=== PATIENT | male | born 1935 | race Caucasian/White ===

== ENCOUNTER 2018-12-07 11:27 | Outpatient (CLI) | payer MEDICARE | END 2018-12-07 11:28 | disposition home or self-care (01) | LOC: LABBT 11:27 | PROVIDERS: ATTEND Surgery | DX: Z01.818 Encounter for other preprocedural examination (principal); K40.90 Unilateral inguinal hernia, without obstruction or gangrene, not specified as recurrent | CPT/HCPCS: 93005; 93010 ==

== ENCOUNTER 2018-12-13 07:05 | Day surgery (SDC) | payer MEDICARE ==
[2018-12-07 11:45] VITALS: BMI 20.4
[2018-12-13] MEDS ORDERED: Fentanyl 100 MCG/2 ML VIAL ONE (08:50)
[2018-12-13] MEDS ORDERED: Bupivacaine/Epinephrine 0.25% 30 ML VIAL ONE (08:53)
[2018-12-13] MEDS ORDERED: Bupivacaine PF 0.5% 30 ML VIAL ONE (09:32)
[2018-12-13] MEDS ORDERED: Tamsulosin HCl 0.4 MG CAP ONE (14:11)
--- NOTE | 2018-12-13 14:45 | OP ---
DATE OF PROCEDURE: 12/13/2018 PREOPERATIVE DIAGNOSIS: Right inguinal hernia. POSTOPERATIVE DIAGNOSIS: Right inguinal hernia. PROCEDURE PERFORMED: Right inguinal hernia repair with mesh, PHS extended. ANESTHESIA: General. ESTIMATED BLOOD LOSS: Minimal. COMPLICATIONS: None. SPECIMEN: None. FINDINGS: Right inguinal hernia. TECHNIQUE: The patient was taken to the operating room and laid supine on the operating room table. After general anesthetic was obtained, the bladder, abdomen, and groin were shaved, prepped, and draped in a sterile fashion. An oblique incision was made above the pubic tubercle in the right lower quadrant. Cautery was used to dissect down through Shadi's to expose external oblique. External oblique fibers up along the course of the external ring. The contents of inguinal canal were dissected from backside of the external oblique. The ilioinguinal nerve was found and segmentally high, removed to prevent postop pain. Cord structures were mobilized on the pubic tubercle using vessel loop. Dissection superior and medial in the cord showed to be indirect hernia sac. The sac was dissected away from surrounding structures and a high ligation was performed using silk suture. The preperitoneal space was entered through the internal ring. The PHS extended mesh was brought into the sterile field. The underlay was placed in the preperitoneal space. The overlay was laid in the floor of the inguinal canal. The overlay was sewn distally to the pubic tubercle, medially to the transversus arch, laterally to the shelving edge of inguinal ligament using permanent braided suture. The extra mesh was tacked back in the external oblique proximally. The wound was irrigated. Local anesthetic was applied. Tunneled catheter for postop pain started from above the incision, left on top of the mesh for postop pain control. The external oblique were closed using 3-0 Vicryl. Shadi was closed using 3-0 Vicryl. Skin was closed using running 4-0 Monocryl and Dermabond. The patient was sent to recovery room in stable condition. All instrument counts, needle counts, and lap counts were correct. Job ID: [id number]
[2018-12-13] MEDS ORDERED: PROPOFOL 200 MG/20 ML VIAL ONE (15:03)
[2018-12-13] MEDS ORDERED: Ketorolac Tromethamine 30 MG/ML VIAL ONE (15:03)
[2018-12-13] MEDS ORDERED: Lidocaine 1% PF 5 ML VIAL ONE (15:03)
[2018-12-13] MEDS ORDERED: Glycopyrrolate 0.2 MG/ML 5 ML SYRINGE ONE (15:03)
[2018-12-13] MEDS ORDERED: Ondansetron PF 4 MG/2 ML Vial ONE (15:03)
[2018-12-13] MEDS ORDERED: ePHEDrine 50 MG/ML VIAL ONE (15:03)
== END 2018-12-13 16:00 | disposition home or self-care (01) ==
LOC: SDC 07:05
PROVIDERS: ATTEND Surgery
PROC: 0YU50JZ Supplement Right Inguinal Region with Synthetic Substitute, Open Approach (ICD-10-PCS; principal; 2018-12-13)
DX: K40.90 Unilateral inguinal hernia, without obstruction or gangrene, not specified as recurrent (principal); E83.110 Hereditary hemochromatosis; I48.2 Chronic atrial fibrillation; I10 Essential (primary) hypertension; M19.90 Unspecified osteoarthritis, unspecified site; N40.0 Benign prostatic hyperplasia without lower urinary tract symptoms; Z87.891 Personal history of nicotine dependence; Z79.82 Long term (current) use of aspirin; Z79.899 Other long term (current) drug therapy; Z91.048 Other nonmedicinal substance allergy status; Z91.040 Latex allergy status; Z96.642 Presence of left artificial hip joint; Z96.653 Presence of artificial knee joint, bilateral
CPT/HCPCS: 49505; 51798; A4306; C1781; J0690; J1885; J2001; J2405; J2704; J3010; J3490; S0020